=== PATIENT | male | born 1950 | race Caucasian/White ===

== ENCOUNTER 2017-12-13 14:59 | Emergency (ER) | payer MEDICARE ==
[2017-12-13] MEDS ORDERED: Tetracaine 0.5% OPTH.SOL 15ML* BTL ONE (16:06)
[2017-12-13] MEDS ORDERED: Fluorescein Sod TOPICAL 0.6* 0.6 MG TEST OPHTHALMIC ONE ×2 (16:06→16:07)
[2017-12-13] MEDS ORDERED: Tetracaine 0.5% OPTH.SOL 4 ML* 1 DROP BTL RIGHT EYE ONE (16:08)
[2017-12-13] MEDS ORDERED: Erythromycin OPTH OINT* APPLIC OINT ONE (16:28)
[2017-12-13 16:40] VITALS: BP 126/77
--- NOTE | 2017-12-13 17:45 | ED ---
Throat Pain/Nasal Congestion - HPI Summary HPI Summary: Patient is 67-year-old male presenting to the ED with possible foreign body in the right eye. 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 He endorses worsening pain with opening and closing the right eye. Denies any blurry vision or double vision. Patient wears glasses and not contacts. He denies any visual changes. Denies any tearing from the eye. Patient states pain is currently a 3/10, intermittent throbbing. - History of Current Complaint Chief Complaint: EDEyeProblem Time Seen by Provider: 12/13/17 16:00 Hx Obtained From: Patient Onset/Duration: Sudden Onset Severity: Moderate - Epiglottits Risk Factors Epiglottis Risk Factors: Negative - Allergies/Home Medications Allergies/Adverse Reactions: Allergies Allergy/AdvReac Type Severity Reaction Status Date / Time No Known Allergies Allergy Verified 12/13/17 15:11 PMH/Surg Hx/FS Hx/Imm Hx Previously Healthy: Yes - Immunization History Hx Pertussis Vaccination: No Immunizations Up to Date: Yes Infectious Disease History: No Infectious Disease History: Denies: Traveled Outside the [place] in Last 30 Days - Social History Occupation: Employed Part-time Lives: With Family Alcohol Use: None Hx Substance Use: No Substance Use Type: Reports: None Hx Tobacco Use: No Smoking Status (MU): Never Smoked Tobacco Review of Systems Constitutional: Negative Negative: Fever, Chills, Fatigue, Skin Diaphoresis Negative: Photophobia, Blurred Vision, Diplopia, Drainage, Erythema, Other - FB Negative: Epistaxis, Dental Pain Negative: Palpitations, Chest Pain Genitourinary: Negative Positive: no symptoms reported, see HPI Negative: Arthralgia, Myalgia Negative: Rash Neurological: Negative All Other Systems Reviewed And Are Negative: Yes Physical Exam Triage Information Reviewed: Yes Vital Signs On Initial Exam: Initial Vitals Temp Pulse Resp BP Pulse Ox 97.3 F 67 14 133/80 98 12/13/17 15:01 12/13/17 15:01 12/13/17 15:01 12/13/17 15:01 12/13/17 15:01 Vital Signs Reviewed: Yes Appearance: Positive: Well-Appearing, Well-Nourished Skin: Positive: Warm, Skin Color Reflects Adequate Perfusion Eyes: Positive: EOMI, PRANEETH, Conjunctiva Clear, Other: - FB visualized with nixon lamp. Negative: Conjunctiva Inflammed, Discharge Neck: Positive: Nontender, No Lymphadenopathy Respiratory/Lung Sounds: Positive: Clear to Auscultation, Breath Sounds Present Cardiovascular: Positive: RRR, Pulses are Symmetrical in both Upper and Lower Extremities Musculoskeletal: Positive: Normal, Strength/ROM Intact Neurological: Positive: Sensory/Motor Intact, Alert, Oriented to Person Place, Time, Speech Normal Psychiatric: Positive: Normal, Affect/Mood Appropriate AVPU Assessment: Alert Diagnostics - Vital Signs Vital Signs Temp Pulse Resp BP Pulse Ox 12/13/17 16:38 98.5 F 61 18 126/77 97 12/13/17 15:01 97.3 F 67 14 133/80 98 - Laboratory Lab Statement: Any lab studies that have been ordered have been reviewed, and results considered in the medical decision making process. EENT Course/Dx - Course Course Of Treatment: Floor seen with tetracaine applied. Nixon lamp to see foreign body. What appears to be a microscopic foreign body in the middle of the cornea. He has attempted to flush the area several times without effect. Attempted to dislodge the FB with a soft Q-tip as well as small needle without effect. Concerned for a corneal abrasion, I felt it more important to stop continuing to try to dislodge the foreign body. Erythromycin 4 times daily prescribed and he will follow up with our surgical dental assistant's service [facility]. He will return to the ED for any worsening or changing symptoms. - Diagnoses Provider Diagnoses: Foreign body, eye Discharge - Sign-Out/Discharge Documenting (check all that apply): Patient Departure - Discharge Plan Condition: Stable Disposition: HOME Patient Education Materials: Eye Foreign Body (ED) Referrals: Trey Rodas MD [Primary Care Provider] - Jesus Mcclure MD [Medical Doctor] - Additional Instructions: Please follow up with ophthalmology on Friday - if any symptoms worsen - return to the ED Erythromycin four times daily x 5 days - Billing Disposition and Condition Condition: STABLE Disposition: Home
[2017-12-13] MEDS ORDERED: Erythromycin OPTH OINT* APPLIC OINT RIGHT EYE SCH (21:00)
== END 2017-12-13 16:38 | disposition home or self-care (01) ==
LOC: ED 14:59
DX: T15.01XA Foreign body in cornea, right eye, initial encounter (principal); W22.8XXA Striking against or struck by other objects, initial encounter; Y92.9 Unspecified place or not applicable
CPT/HCPCS: 99282; A9270-GY